=== PATIENT | female | born 1990 | race Hispanic/Latino ===

== ENCOUNTER 2018-02-03 17:30 | Inpatient (IN) | payer OTHER ==
[2018-02-03] MEDS ORDERED: Terbutaline 1 MG/ML SDV SUBCUT PRN (19:22)
[2018-02-03] MEDS ORDERED: Carboprost Tromethamine 250 MCG/1 ML Amp IM PRN (19:22)
[2018-02-03] MEDS ORDERED: Misoprostol 200 MCG Tab PO PRN (19:22)
[2018-02-03] MEDS ORDERED: Tranexamic Acid 1,000 MG in Sodium Chloride 0.9% 100 ML IV PRN (19:22)
[2018-02-03] MEDS ORDERED: Sodium Chloride 0.9% 2.5 ML Syringe FLUSH PRN (19:22)
[2018-02-03] MEDS ORDERED: Water For Irrigation,Sterile 1,000 ML Container IRR PRN (19:22)
[2018-02-03] MEDS ORDERED: Sodium Chloride 0.9% 10 ML Syringe FLUSH PRN (19:22)
[2018-02-03] MEDS ORDERED: Nalbuphine 10 MG/1 ML Vial IVPUSH PRN (19:22)
[2018-02-03] MEDS ORDERED: Methylergonovine 0.2 MG/1 ML Amp IM PRN (19:22)
[2018-02-03] MEDS ORDERED: Lidocaine 1% 50 ML MDV INJECT PRN (19:22)
[2018-02-03] MEDS ORDERED: Lactated Ringers 1,000 ML IV SCH (19:30)
[2018-02-03] MEDS ORDERED: Oxytocin/0.9 % Sodium Chloride 30 UNIT/500 ML BAG IV SCH ×2 (19:30)
[2018-02-03] MEDS ORDERED: Ampicillin 2 GM in Sodium Chloride 0.9% 100 ML IV ONE (20:00)
[2018-02-03] MEDS ORDERED: oxyCODONE 5 MG Tab PO PRN (22:40)
[2018-02-03] MEDS ORDERED: Ibuprofen 800 MG Tab PO PRN (22:40)
[2018-02-03] MEDS ORDERED: Benzocaine/Menthol 20%-0.5% Spray 78 GM Cannister TOP PRN (22:40)
[2018-02-03] MEDS ORDERED: Ibuprofen 400 MG Tab PO PRN (22:40)
[2018-02-03] MEDS ORDERED: Acetaminophen 500 MG Tab PO PRN ×2 (22:40)
[2018-02-03] MEDS ORDERED: Witch Hazel Medicated Pads 40/Jar TOP PRN (22:40)
[2018-02-03] MEDS ORDERED: Lanolin 100% Cream 7 GM Tube TOP PRN (22:40)
[2018-02-03] MEDS ORDERED: Docusate Sodium 100 MG Cap PO PRN (22:40)
[2018-02-03] MEDS ORDERED: Bisacodyl 10 MG Supp RECTAL PRN (22:40)
--- NOTE | 2018-02-03 22:40 | PCM.LDHP ---
L&D History of Present Illness - General Date of Service: 02/03/18 Admit Problem/Dx: Patient Status Order with Admit Dx/Problem 02/03/18 17:54 Patient Status [ADT] Routine 02/03/18 19:22 Patient Status [ADT] Routine Admission Diagnosis/Problem Admission Diagnosis/Problem Source of Information: Patient History Limitations: Reports: No Limitations - History of Present Illness Improves with: Reports: None Worsens with: Reports: None Associated Symptoms: Reports: N - Related Data Allergies/Adverse Reactions: Allergies Allergy/AdvReac Type Severity Reaction Status Date / Time shellfish derived Allergy Itching Verified 02/03/18 21:19 Home Medications: Home Meds . [No Known Home Meds] 07/27/16 [History] Past Medical History HEENT History: Reports: None Cardiovascular History: Reports: None Respiratory History: Reports: None Gastrointestinal History: Reports: None Genitourinary History: Reports: None [employer] History: Reports: Musculoskeletal History: Reports: None Neurological History: Reports: None Psychiatric History: Reports: None Endocrine/Metabolic History: Reports: None Hematologic History: Reports: None Immunologic History: Reports: None Oncologic (Cancer) History: Reports: None Dermatologic History: Reports: None - Infectious Disease History Infectious Disease History: Reports: None - Past Surgical History Head Surgeries/Procedures: Reports: None HEENT Surgical History: Reports: None GI Surgical History: Reports: None Female Surgical History: Reports: None Endocrine Surgical History: Reports: None Neurological Surgical History: Reports: None Musculoskeletal Surgical History: Reports: None Dermatological Surgical History: Reports: None Social & Family History - Family History Family Medical History: Noncontributory - Tobacco Use Smoking Status *Q: Never Smoker Second Hand Smoke Exposure: No - Caffeine Use Caffeine Use: Reports: Coffee, Soda - Recreational Drug Use Recreational Drug Use: No H&P Review of Systems - Review of Systems: Review Of Systems: See Below General: Reports: No Symptoms HEENT: Reports: No Symptoms Pulmonary: Reports: No Symptoms Cardiovascular: Reports: No Symptoms Gastrointestinal: Reports: No Symptoms Genitourinary: Reports: No Symptoms Musculoskeletal: Reports: No Symptoms Skin: Reports: No Symptoms Psychiatric: Reports: No Symptoms Neurological: Reports: No Symptoms Hematologic/Lymphatic: Reports: No Symptoms Immunologic: Reports: No Symptoms L&D Exam - Exam Exam: See Below - Vital Signs Weight: 86.636 kg - OB Specific Fundal Height In cm: 39 Contraction Intensity: Moderate Movement: Active Heart Tones: Present Presentation: Vertex - Ramirez Score Ramirez Score Cervix Position: Anterior Ramirez Score Consistency: Soft Ramirez Score Effacement: 51-70% Ramirez Score Dilation: > 5 cm Ramirez Score 's Station: -1 ,0 Ramirez Score Total: 11 - Exam General: Alert, Oriented HEENT: PERRLA, Conjunctiva Clear, EACs Clear, EOMI, Hearing Intact, Mucosa Moist & Soldier, Nares Patent, Normal Nasal Septum, Posterior Pharynx Clear, TMs Clear Neck: Supple, Trachea Midline Lungs: Clear to Auscultation, Normal Respiratory Effort Cardiovascular: Regular Rate, Regular Rhythm GI/Abdominal Exam: Normal Bowel Sounds, Soft, Non-Tender, No Organomegaly, No Distention, No Abnormal Bruit, No Mass, Pelvis Stable Rectal Exam: Normal Exam, Normal Rectal Tone Genitourinary: Normal external exam, Normal bimanual exam, Normal speculum exam Back Exam: Normal Inspection, Full Range of Motion Extremities: Normal Inspection, Normal Range of Motion, Non-Tender, No Pedal Edema, Normal Capillary Refill Skin: Warm, Dry, Intact Neurological: Cranial Nerves Intact, Reflexes Equal Bilateral Psychiatric: Alert, Normal Affect, Normal Mood - Patient Data Lab Results Last 24 hrs: Laboratory Results - last 24 hr 02/03/18 02/03/18 Range/Units 19:38 19:38 WBC 8.98 (4.0-11.0) K/uL RBC 3.97 L (4.30-5.90) M/uL Hgb 13.2 (12.0-16.0) g/dL Hct 37.5 (36.0-46.0) % MCV 94.5 (80.0-98.0) fL MCH 33.2 H (27.0-32.0) pg MCHC 35.2 (31.0-37.0) g/dL RDW Std Deviation 44.2 (28.0-62.0) fl RDW Coeff of Tomasa 13 (11.0-15.0) % Plt Count 208 (150-400) K/uL MPV 10.20 (7.40-12.00) fL Nucleated RBC % 0.0 /100WBC Nucleated RBCs # 0 K/uL Blood Type O POSITIVE Antibody Screen NEGATIVE Result Diagrams: 02/03/18 19:38 Problem List Initiated/Reviewed/Updated: Yes Orders Last 24hrs: Active Orders 24 hr Category Date Time Status Patient Status [ADT] Routine ADT 02/03/18 19:22 Active Bedrest Bathroom Privileges [RC] ASDIRECTED Care 02/03/18 19:22 Active Communication Order [RC] ASDIRECTED Care 02/03/18 19:22 Active May Shower [RC] ASDIRECTED Care 02/03/18 19:22 Active Notify Provider [RC] PRN Care 02/03/18 19:22 Active Oxygen Therapy [RC] ASDIRECTED Care 02/03/18 19:22 Active Up ad Moira [RC] ASDIRECTED Care 02/03/18 17:54 Active Vital Signs [RC] PER UNIT ROUTINE Care 02/03/18 17:54 Active Ampicillin 1 gm Med 02/04/18 00:00 Active Sodium Chloride 0.9% [Normal Saline] 50 ml IV Q4H Carboprost Tromethamine [Hemabate DS] Med 02/03/18 19:22 Active 250 mcg IM ASDIRECTED PRN Lactated Ringers [Ringers, Lactated] 1,000 ml Med 02/03/18 19:30 Active IV ASDIRECTED Lidocaine 1% [Xylocaine 1%] Med 02/03/18 19:22 Active 50 ml INJECT ONETIME PRN Methylergonovine [Methergine] Med 02/03/18 19:22 Active 0.2 mg IM ASDIRECTED PRN Nalbuphine [Nubain] Med 02/03/18 19:22 Active 10 mg IVPUSH Q1H PRN Oxytocin/0.9 % Sodium Chloride [Oxytocin 30 Unit/500 ML Med 02/03/18 19:30 Active -NS] 30 unit in 500 ml IV TITRATE Oxytocin/0.9 % Sodium Chloride [Oxytocin 30 Unit/500 ML Med 02/03/18 19:30 Active -NS] 30 unit in 500 ml IV TITRATE Sodium Chloride 0.9% [Saline Flush] Med 02/03/18 19:22 Active 10 ml FLUSH ASDIRECTED PRN Sodium Chloride 0.9% [Saline Flush] Med 02/03/18 19:22 Active 2.5 ml FLUSH ASDIRECTED PRN Terbutaline [Brethine] Med 02/03/18 19:22 Active 0.25 mg SUBCUT ASDIRECTED PRN Tranexamic Acid [Cyklokapron] 1,000 mg Med 02/03/18 19:22 Active Sodium Chloride 0.9% [Normal Saline] 100 ml IV ONETIME Water For Irrigation,Sterile [Sterile Water for Med 02/03/18 19:22 Active Irrigation] 1,000 ml IRR ASDIRECTED PRN miSOPROStol [Cytotec] Med 02/03/18 19:22 Active 200 mcg PO ONETIME PRN Scalp Electrode [WOMSER] Per Unit Routine Oth 02/03/18 19:22 Ordered Medication Administration Instruction [OM.PC] Q3H Oth 02/03/18 19:30 Ordered Peripheral IV Insertion Adult [OM.PC] Routine Oth 02/03/18 19:22 Ordered Resuscitation Status Routine Resus Stat 02/03/18 17:54 Ordered Medication Orders Carboprost Tromethamine (Hemabate Ds) 250 mcg IM ASDIRECTED PRN PRN Reason: Post Hemorrhage Tranexamic Acid 1,000 mg/ (Sodium Chloride) 110 mls @ 660 mls/hr IV ONETIME PRN PRN Reason: Bleeding Lactated Ringer's (Ringers, Lactated) 1,000 mls @ 150 mls/hr IV ASDIRECTED [facility] Last Admin: 02/03/18 19:54 Dose: 150 mls/hr Oxytocin/Sodium Chloride (Oxytocin 30 Unit/500 Ml-Ns) 30 unit in 500 mls @ 999 mls/hr IV TITRATE [facility] Oxytocin/Sodium Chloride (Oxytocin 30 Unit/500 Ml-Ns) 30 unit in 500 mls @ 2 mls/hr IV TITRATE [facility]; Protocol Ampicillin Sodium 1 gm/ Sodium (Chloride) 50 mls @ 100 mls/hr IV Q4H [facility] Lidocaine HCl (Xylocaine 1%) 50 ml INJECT ONETIME PRN PRN Reason: Laceration repair Methylergonovine Maleate (Methergine) 0.2 mg IM ASDIRECTED PRN PRN Reason: Post Hemorrhage Misoprostol (Cytotec) 200 mcg PO ONETIME PRN PRN Reason: Post Hemorrhage Nalbuphine HCl (Nubain) 10 mg IVPUSH Q1H PRN PRN Reason: Pain (severe 7-10) Sodium Chloride (Saline Flush) 10 ml FLUSH ASDIRECTED PRN PRN Reason: Keep Vein Open Sodium Chloride (Saline Flush) 2.5 ml FLUSH ASDIRECTED PRN PRN Reason: Keep Vein Open Sterile Water (Sterile Water For Irrigation) 1,000 ml IRR ASDIRECTED PRN PRN Reason: delivery Terbutaline Sulfate (Brethine) 0.25 mg SUBCUT ASDIRECTED PRN PRN Reason: Tacysystole
--- NOTE | 2018-02-04 04:49 | OR ---
SURGEON: Naresh Arnold MD DATE OF PROCEDURE: Ms. Paz is a 27-year-old patient, multigravida, and she is followed in our clinic primarily by Crystal Blandon, certified nurse high density talc coater operator. She had no complication prenatally. However, the patient had a positive GBS culture. She was admitted in active labor. At the time of admission, she was 5 to 6 cm, in active labor with intact membrane. She was started on antibiotic as per protocol, and she progressed, and she became complete and was able to accomplish normal spontaneous vaginal delivery of a male fetus, score reported 8 and 9. The placenta delivered spontaneous, complete, and intact. There was no laceration. There was no need for episiotomy. Estimated blood loss in this delivery is 250 mL to 300 mL. heart rate was category 1 through the entire process of labor. RALPH / LEONEL /[id number]
[2018-02-04] MEDS: Ampicillin 1 GM in Sodium Chloride 0.9% 50 ML IV SCH (07:57)
--- NOTE | 2018-02-04 08:27 | PCM.PNPP ---
- General Info Date of Service: 02/04/18 Admission Dx/Problem (Free Text): Patient Status Order with Admit Dx/Problem 02/03/18 17:54 Patient Status [ADT] Routine 02/03/18 19:22 Patient Status [ADT] Routine Admission Diagnosis/Problem Admission Diagnosis/Problem Functional Status: Reports: Pain Controlled, Tolerating Diet, Ambulating, Urinating - Review of Systems General: Reports: No Symptoms HEENT: Reports: No Symptoms Pulmonary: Reports: No Symptoms Cardiovascular: Reports: No Symptoms Gastrointestinal: Reports: No Symptoms Genitourinary: Reports: No Symptoms Musculoskeletal: Reports: No Symptoms Skin: Reports: No Symptoms Neurological: Reports: No Symptoms Psychiatric: Reports: No Symptoms - Patient Data Vital Signs - Most Recent: Last Vital Signs Temp 36.3 C 02/04/18 03:15 Pulse 78 02/04/18 03:15 Resp 20 02/04/18 03:15 BP 101/64 02/04/18 03:15 Pulse Ox 98 02/04/18 03:15 Weight - Most Recent: 86.636 kg Lab Results - Last 24 Hours: Laboratory Results - last 24 hr 02/03/18 02/03/18 02/04/18 Range/Units 19:38 19:38 05:40 WBC 8.98 (4.0-11.0) K/uL RBC 3.97 L (4.30-5.90) M/uL Hgb 13.2 12.8 (12.0-16.0) g/dL Hct 37.5 36.3 (36.0-46.0) % MCV 94.5 (80.0-98.0) fL MCH 33.2 H (27.0-32.0) pg MCHC 35.2 (31.0-37.0) g/dL RDW Std Deviation 44.2 (28.0-62.0) fl RDW Coeff of Tomasa 13 (11.0-15.0) % Plt Count 208 (150-400) K/uL MPV 10.20 (7.40-12.00) fL Nucleated RBC % 0.0 /100WBC Nucleated RBCs # 0 K/uL Blood Type O POSITIVE Antibody Screen NEGATIVE Med Orders - Current: Current Medications Acetaminophen (Tylenol Extra Strength) 500 mg PO Q4H PRN PRN Reason: Pain Acetaminophen (Tylenol Extra Strength) 1,000 mg PO Q4H PRN PRN Reason: Pain Benzocaine/Menthol (Dermoplast Pain Relief 20%-0.5% Basye) 78 gm TOP ASDIRECTED PRN PRN Reason: Perineal Comfort Measure Bisacodyl (Dulcolax) 10 mg RECTAL ONETIME PRN PRN Reason: Constipation Carboprost Tromethamine (Hemabate Ds) 250 mcg IM ASDIRECTED PRN PRN Reason: Post Hemorrhage Docusate Sodium (Colace) 100 mg PO BID PRN PRN Reason: Constipation Emollient Ointment (Lansinoh Hpa) 0 gm TOP ASDIRECTED PRN PRN Reason: Sore Nipples Tranexamic Acid 1,000 mg/ (Sodium Chloride) 110 mls @ 660 mls/hr IV ONETIME PRN PRN Reason: Bleeding Lactated Ringer's (Ringers, Lactated) 1,000 mls @ 150 mls/hr IV ASDIRECTED [facility] Last Admin: 02/03/18 19:54 Dose: 150 mls/hr Oxytocin/Sodium Chloride (Oxytocin 30 Unit/500 Ml-Ns) 30 unit in 500 mls @ 999 mls/hr IV TITRATE [facility] Oxytocin/Sodium Chloride (Oxytocin 30 Unit/500 Ml-Ns) 30 unit in 500 mls @ 2 mls/hr IV TITRATE [facility]; Protocol Ampicillin Sodium 1 gm/ Sodium (Chloride) 50 mls @ 100 mls/hr IV Q4H [facility] Last Admin: 02/04/18 07:57 Dose: Not Given Ibuprofen (Motrin) 400 mg PO Q4H PRN PRN Reason: Pain Ibuprofen (Motrin) 800 mg PO Q6H PRN PRN Reason: Pain Lidocaine HCl (Xylocaine 1%) 50 ml INJECT ONETIME PRN PRN Reason: Laceration repair Methylergonovine Maleate (Methergine) 0.2 mg IM ASDIRECTED PRN PRN Reason: Post Hemorrhage Misoprostol (Cytotec) 200 mcg PO ONETIME PRN PRN Reason: Post Hemorrhage Nalbuphine HCl (Nubain) 10 mg IVPUSH Q1H PRN PRN Reason: Pain (severe 7-10) Oxycodone HCl (Oxycodone) 5 mg PO Q2H PRN PRN Reason: Pain Sodium Chloride (Saline Flush) 10 ml FLUSH ASDIRECTED PRN PRN Reason: Keep Vein Open Sodium Chloride (Saline Flush) 2.5 ml FLUSH ASDIRECTED PRN PRN Reason: Keep Vein Open Sterile Water (Sterile Water For Irrigation) 1,000 ml IRR ASDIRECTED PRN PRN Reason: delivery Terbutaline Sulfate (Brethine) 0.25 mg SUBCUT ASDIRECTED PRN PRN Reason: Tacysystole Witch Cintia (Tucks) 1 pad TOP ASDIRECTED PRN PRN Reason: comfort care Discontinued Medications Ampicillin Sodium 2 gm/ Sodium (Chloride) 100 mls @ 200 mls/hr IV ONETIME ONE Stop: 02/03/18 20:29 Last Admin: 02/03/18 19:54 Dose: 200 mls/hr - Infant Interaction Disposition, : in Room with Family Infant Interaction: Holding Infant Feeding: Breastfed ; Nursed Well Support Person: - Recovery Exam Fundal Tone: Firm Fundal Level: 2 Fingerbreadths Below Umbilicus Fundal Placement: Midline Lochia Amount: Small Lochia Color: Rubra/Red Perineum Description: Intact, Minimal Bruising/Swelling - Exam General: Alert, Oriented, Cooperative, No Acute Distress Lungs: Normal Respiratory Effort Cardiovascular: Murmurs GI/Abdominal Exam: Soft Extremities: Normal Inspection, Normal Range of Motion, Non-Tender, No Pedal Edema, Normal Capillary Refill Skin: Warm, Dry, Intact Wound/Incisions: Healing Well Neurological: No New Focal Deficit, Normal Gait, Normal Speech, Normal Tone, Strength Equal Bilateral Psy/Mental Status: Alert, Normal Affect, Normal Mood - Problem List & Annotations (1) Supervision of normal IUP (intrauterine ) in multigravida SNOMED Code(s): 773372370, 691998392, 245715004 Code(s): Z34.80 - ENCOUNTER FOR SUPRVSN OF NORMAL , UNSP TRIMESTER Status: Acute Priority: High Current Visit: Yes Qualifiers: Trimester: third trimester Qualified Code(s): Z34.83 - Encounter for supervision of other normal , third trimester (2) (normal spontaneous vaginal delivery) SNOMED Code(s): 99860886 Code(s): O80 - ENCOUNTER FOR FULL-TERM UNCOMPLICATED DELIVERY Status: Acute Priority: High Current Visit: Yes - Problem List Review Problem List Initiated/Reviewed/Updated: Yes - Plan Plan:: PPD#1 A: VSS, AF, FF 2BU, stable, breast feeding well P: continue pp plan of care
--- NOTE | 2018-02-05 08:22 | PCM.DCSUM1 ---
Discharge Summary - Hospital Course Free Text/Narrative:: Discharge home with . Follow up in 6 weeks or sooner if needed. Diagnosis: Stroke: No - Discharge Data Discharge Date: 02/05/18 Discharge Disposition: Home, Self-Care 01 Condition: Good - Discharge Diagnosis/Problem(s) (1) Supervision of normal IUP (intrauterine ) in multigravida SNOMED Code(s): 356246707, 723751297, 177382824 ICD Code: Z34.80 - ENCOUNTER FOR SUPRVSN OF NORMAL , UNSP TRIMESTER Status: Acute Priority: High Current Visit: Yes Qualifiers: Trimester: third trimester Qualified Code(s): Z34.83 - Encounter for supervision of other normal , third trimester (2) (normal spontaneous vaginal delivery) SNOMED Code(s): 63427306 ICD Code: O80 - ENCOUNTER FOR FULL-TERM UNCOMPLICATED DELIVERY Status: Acute Priority: High Current Visit: Yes - Patient Instructions Diet: Usual Diet as Tolerated Activity: As Tolerated, No Strenuous Activities, Rest and Relax Today Driving: May Drive Today Showering/Bathing: May Shower Notify Provider of: Fever, Increased Pain, Swelling and Redness, Nausea and/or Vomiting Other/Special Instructions: Discharge home with . Follow up in 6 weeks or sooner if needed. - Discharge Plan Home Medications: Home Meds . [No Known Home Meds] 07/27/16 [History] Referrals: [facility] [Outside] Naresh Arnold MD [Primary Care Provider] - 03/17/18 9:30 am - General Info Date of Service: 02/05/18 Admission Dx/Problem (Free Text: Patient Status Order with Admit Dx/Problem 02/03/18 17:54 Patient Status [ADT] Routine 02/03/18 19:22 Patient Status [ADT] Routine Admission Diagnosis/Problem Admission Diagnosis/Problem Functional Status: Reports: Pain Controlled, Tolerating Diet, Ambulating, Urinating - Review of Systems General: Reports: No Symptoms HEENT: Reports: No Symptoms Pulmonary: Reports: No Symptoms Cardiovascular: Reports: No Symptoms Gastrointestinal: Reports: No Symptoms Genitourinary: Reports: No Symptoms Musculoskeletal: Reports: No Symptoms Skin: Reports: No Symptoms Neurological: Reports: No Symptoms Psychiatric: Reports: No Symptoms - Patient Data Vitals - Most Recent: Last Vital Signs Temp 36.8 C 02/05/18 04:00 Pulse 92 02/05/18 04:00 Resp 16 02/05/18 04:00 BP 107/75 02/05/18 04:00 Pulse Ox 95 02/05/18 04:00 Weight - Most Recent: 86.636 kg Med Orders - Current: Current Medications Acetaminophen (Tylenol Extra Strength) 500 mg PO Q4H PRN PRN Reason: Pain Acetaminophen (Tylenol Extra Strength) 1,000 mg PO Q4H PRN PRN Reason: Pain Benzocaine/Menthol (Dermoplast Pain Relief 20%-0.5% Duncan) 78 gm TOP ASDIRECTED PRN PRN Reason: Perineal Comfort Measure Bisacodyl (Dulcolax) 10 mg RECTAL ONETIME PRN PRN Reason: Constipation Carboprost Tromethamine (Hemabate Ds) 250 mcg IM ASDIRECTED PRN PRN Reason: Post Hemorrhage Docusate Sodium (Colace) 100 mg PO BID PRN PRN Reason: Constipation Emollient Ointment (Lansinoh Hpa) 0 gm TOP ASDIRECTED PRN PRN Reason: Sore Nipples Tranexamic Acid 1,000 mg/ (Sodium Chloride) 110 mls @ 660 mls/hr IV ONETIME PRN PRN Reason: Bleeding Lactated Ringer's (Ringers, Lactated) 1,000 mls @ 150 mls/hr IV ASDIRECTED [facility] Last Admin: 02/03/18 19:54 Dose: 150 mls/hr Oxytocin/Sodium Chloride (Oxytocin 30 Unit/500 Ml-Ns) 30 unit in 500 mls @ 999 mls/hr IV TITRATE [facility] Oxytocin/Sodium Chloride (Oxytocin 30 Unit/500 Ml-Ns) 30 unit in 500 mls @ 2 mls/hr IV TITRATE [facility]; Protocol Ampicillin Sodium 1 gm/ Sodium (Chloride) 50 mls @ 100 mls/hr IV Q4H [facility] Last Admin: 02/04/18 07:57 Dose: Not Given Ibuprofen (Motrin) 400 mg PO Q4H PRN PRN Reason: Pain Ibuprofen (Motrin) 800 mg PO Q6H PRN PRN Reason: Pain Lidocaine HCl (Xylocaine 1%) 50 ml INJECT ONETIME PRN PRN Reason: Laceration repair Methylergonovine Maleate (Methergine) 0.2 mg IM ASDIRECTED PRN PRN Reason: Post Hemorrhage Misoprostol (Cytotec) 200 mcg PO ONETIME PRN PRN Reason: Post Hemorrhage Nalbuphine HCl (Nubain) 10 mg IVPUSH Q1H PRN PRN Reason: Pain (severe 7-10) Oxycodone HCl (Oxycodone) 5 mg PO Q2H PRN PRN Reason: Pain Sodium Chloride (Saline Flush) 10 ml FLUSH ASDIRECTED PRN PRN Reason: Keep Vein Open Sodium Chloride (Saline Flush) 2.5 ml FLUSH ASDIRECTED PRN PRN Reason: Keep Vein Open Sterile Water (Sterile Water For Irrigation) 1,000 ml IRR ASDIRECTED PRN PRN Reason: delivery Terbutaline Sulfate (Brethine) 0.25 mg SUBCUT ASDIRECTED PRN PRN Reason: Tacysystole Witch Cintia (Tucks) 1 pad TOP ASDIRECTED PRN PRN Reason: comfort care Discontinued Medications Ampicillin Sodium 2 gm/ Sodium (Chloride) 100 mls @ 200 mls/hr IV ONETIME ONE Stop: 02/03/18 20:29 Last Admin: 02/03/18 19:54 Dose: 200 mls/hr - Exam General: Reports: Alert, Oriented, Cooperative, No Acute Distress Lungs: Reports: Clear to Auscultation Cardiovascular: Reports: Regular Rate, Regular Rhythm, No Murmurs GI/Abdominal Exam: Normal Bowel Sounds, Soft, Non-Tender, No Organomegaly, No Distention, No Abnormal Bruit, No Mass, Pelvis Stable (Female) Exam: Vaginal Bleeding Rectal (Female) Exam: Deferred Back Exam: Reports: Normal Inspection Extremities: Normal Inspection, Normal Range of Motion, Non-Tender, No Pedal Edema, Normal Capillary Refill Skin: Reports: Warm, Dry, Intact Wound/Incisions: Reports: Healing Well Neurological: Reports: No New Focal Deficit, Normal Speech, Normal Tone, Strength Equal Bilateral Psy/Mental Status: Reports: Alert, Normal Affect, Normal Mood
[2018-02-05 08:49] VITALS: BP 99/55
== END 2018-02-05 13:30 | disposition home or self-care (01) | DRG 775 ==
LOC: MW.OBCHECK 17:30 → MW.OB 17:37 → MW.OBCHECK 19:21 → MW.OB 19:22 → OBSVTOIN 22:40
PROVIDERS: ADMIT Obstetrics & Gynecology; ATTEND Obstetrics & Gynecology
PROC: 10E0XZZ Delivery of Products of Conception, External Approach (ICD-10-PCS; principal; 2018-02-03)
DX: O99.824 Streptococcus B carrier state complicating childbirth (principal); Z3A.40 40 weeks gestation of pregnancy; Z37.0 Single live birth
CPT/HCPCS: 36415; 59025; 59409; 85014; 85018; 85027; 86850; 86900; 86901; J0290; J7030; J7120